=== PATIENT | female | born 1970 | race African-American/Black ===

== ENCOUNTER 2016-09-05 16:43 | Emergency (ER) | payer SELFPAY ==
[~2016-09-05] VITALS: Ht 160 cm; Wt 72.6 kg
[2016-09-05 17:14] LABS: BASOPHILS # (AUTO) 0.2 /CMM (0.0-0.2); BASOPHILS % (AUTO) 2.3 % (0.0-2.0); DIFF TOTAL % 100 %; EOSINOPHILS # (AUTO) 0.2 /CMM (0.0-0.7); EOSINOPHILS % (AUTO) 2.8 % (0.0-6.0); HEMATOCRIT 42 % (33-45); LYMPHOCYTES # (AUTO) 3.4 /CMM (0.8-4.8); LYMPHOCYTES % (AUTO) 49.2 % (20.0-44.0); MEAN CORPUSCULAR HEMOGLOBIN 33 PG (26.0-33.0); MEAN CORPUSCULAR HGB CONC 34 g/dl (31.0-36.0); MEAN CORPUSCULAR VOLUME 98 fL (82-100); MONOCYTES # (AUTO) 0.6 /CMM (0.1-1.30); MONOCYTES % (AUTO) 8.7 % (2.0-12.0); NEUTROPHILS # (AUTO) 2.5 /CMM (1.8-8.9); PLATELET COUNT (AUTO) 142 /CMM (150-450); RED BLOOD CELL COUNT(AUTO) 4.26 MIL/uL (4.0-5.2); WHITE BLOOD COUNT (AUTO) 6.9 K/uL (4.3-11.0)
[2016-09-05 17:33] LABS: KETONES,URINE Negative (NEGATIVE); LEUKOCYTE ESTERASE ,URINE Small (NEGATIVE); PH,URINE 6.5 (5.0-8.0)
[2016-09-05 17:36] LABS: ADD UA MICROSCOPIC YES
[2016-09-05 17:38] LABS: CREATININE 0.8 mg/dL (0.6-1.3); POTASSIUM 3.8 mmol/L (3.5-5.1)
[2016-09-05 17:44] LABS: ALBUMIN 4.1 g/dL (3.4-5.0); BILIRUBIN,DIRECT 0.1 mg/dL (0.0-0.2); BILIRUBIN,TOTAL 0.4 mg/dL (0.2-1.0); INDIRECT BILIRUBIN 0.3 mg/dL (0.0-1.1); TOTAL PROTEIN, SERUM 7.8 g/dL (6.4-8.2)
[2016-09-05] MEDS ORDERED: CEPHALEXIN MONOHYDRATE 500 MG CAPSULE PO ONE ×2 (18:00→18:01)
[2016-09-05] MEDS ORDERED: ACETAMINOPHEN 325 MG TABLET ONE (18:04)
[2016-09-05 18:19] VITALS: BP 119/66
[2016-09-05 18:22] LABS: ADD URINE CULTURE YES
[2016-09-05] MEDS ORDERED: ACETAMINOPHEN 325 MG TABLET PO ONE (18:30)
== END 2016-09-05 18:17 | disposition home or self-care (01) ==
LOC: ER 16:49
DX: N39.0 Urinary tract infection, site not specified (principal); Z88.0 Allergy status to penicillin
CPT/HCPCS: 36415; 76705-TC; 80048-TC; 80076-TC; 81000-TC; 84703-TC; 85025-TC; 87086-TC; 87186-TC; A4606; Z7610

== ENCOUNTER 2016-09-11 09:38 | Emergency (ER) | payer MEDICAID ==
[~2016-09-11] VITALS: Ht 160 cm; Wt 72.6 kg
[2016-09-11 09:38] VITALS: BP 122/62
== END 2016-09-11 10:42 | disposition home or self-care (01) ==
LOC: ER 09:41
DX: B02.9 Zoster without complications (principal); Z88.0 Allergy status to penicillin
CPT/HCPCS: A4606; Z7502; Z7610

== ENCOUNTER 2022-04-20 07:25 | Emergency (ER) | payer MEDICAID ==
[~2022-04-20] VITALS: Ht 160 cm; Wt 72.6 kg
--- NOTE | 2022-04-20 07:39 | NUR ---
TO ER BED 10. BIBS C/O ABDOMINAL PAIN STARTED YESTERDAY P/S 10 LLQ. PT STATED THAT THE PAIN IS A SHARP PAIN. ATTACHED TO MONITOR. VITALS ARE WITHIN NORMAL LIMITS. WARM BLANKET PROVIDED FOR COMFORT. DR AGUILAR AT BEDSIDE FOR EVAL.
--- NOTE | 2022-04-20 07:42 | NUR ---
URINE COLLECTED AND SENT
--- NOTE | 2022-04-20 07:52 | NUR ---
IV ESTABLISHED L AC 20G. LABS DRAWN AND COLLECTED AT BEDSIDE.
[2022-04-20 08:01] LABS: BASOPHILS # (AUTO) 0.1 K/uL (0.0-0.2); BASOPHILS % (AUTO) 1.1 % (0.0-2.0); EOSINOPHILS % (AUTO) 3.3 % (0.0-6.0); HEMATOCRIT 38 % (33-45); HEMOGLOBIN 12.9 g/dL (11.5-14.8); LYMPHOCYTES # (AUTO) 3.1 K/uL (0.8-4.8); MEAN CORPUSCULAR HGB CONC 34 g/dl (31.0-36.0); MEAN CORPUSCULAR VOLUME 100 fL (82-100); MONOCYTES # (AUTO) 1.1 K/uL (0.1-1.30); NEUTROPHILS % (AUTO) 56.6 % (43.0-81.0); PLATELET COUNT (AUTO) 163 K/uL (150-450); RED BLOOD CELL COUNT(AUTO) 3.82 MIL/uL (4.0-5.2); WHITE BLOOD COUNT (AUTO) 10.6 K/uL (4.3-11.0)
[2022-04-20] MEDS ORDERED: ONDANSETRON HCL/PF 4 MG/2 ML VIAL ONE (08:12)
[2022-04-20] MEDS ORDERED: MORPHINE SULFATE INJ 4 MG/ML DISP.SYRIN ONE ×2 (08:13→11:36)
[2022-04-20 08:19] LABS: BILIRUBIN,URINE SMALL (NEGATIVE); COLOR,URINE DARK YELLOW (YELLOW); LEUKOCYTE ESTERASE ,URINE SMALL (NEGATIVE); NITRITE, URINE POSITIVE (NEGATIVE); PROTEIN,URINE 30 mg/dl (NEGATIVE); UGLUCOSE NEGATIVE (NEGATIVE)
[2022-04-20] MEDS ORDERED: MORPHINE SULFATE INJ 2 MG/ML DISP.SYRIN IV ONE ×2 (08:30→12:00)
[2022-04-20] MEDS ORDERED: IV NS 0.9% 1,000 ML IV ONE (08:30)
[2022-04-20] MEDS ORDERED: ONDANSETRON HCL/PF 4 MG/2 ML VIAL IV ONE (08:30)
--- NOTE | 2022-04-20 08:31 | NUR ---
WAIVER SIGNED BY PT; FORM PLACED IN THE CHART.
[2022-04-20 08:44] LABS: ALBUMIN 3.8 g/dL (3.4-5.0); BILIRUBIN,DIRECT 0.2 mg/dL (0.0-0.2); BILIRUBIN,TOTAL 0.8 mg/dL (0.2-1.0); CALCIUM, SERUM 9.1 mg/dL (8.5-10.1); CREATININE 0.7 mg/dL (0.6-1.3); POTASSIUM 3.7 mmol/L (3.5-5.1); TOTAL PROTEIN, SERUM 7.6 g/dL (6.4-8.2)
[2022-04-20 08:54] LABS: BACTERIA,URINE Moderate /HPF (None Seen); SQUAMOUS EPITHELIAL CELL,UR Few /HPF (None Seen)
[2022-04-20] MEDS ORDERED: CEFTRIAXONE 1GM BAG (ER ONLY) 50 ML IV ONE (09:26)
[2022-04-20] MEDS ORDERED: CEFTRIAXONE 1 G in IV D5W 50 ML IV ONE (09:30)
--- NOTE | 2022-04-20 11:23 | NUR ---
ULTRASOUND AT BEDSIDE
[2022-04-20] MEDS ORDERED: ONDA4TAB5 PO (12:13)
[2022-04-20] MEDS ORDERED: AMOX-430 PO (12:13)
[2022-04-20] MEDS ORDERED: HYDR-4209 PO (12:13)
[2022-04-20 12:29] VITALS: BP 119/73
--- NOTE | 2022-04-20 12:29 | NUR ---
IV removed. Catheter intact and site benign. Pressure and 4x4 applied to site. No bleeding noted.Patient discharged to home in stable condition. Written and verbal after care instructions given. Patient verbalizes understanding of instruction.
== END 2022-04-20 12:30 | disposition home or self-care (01) ==
LOC: ER 07:29
DX: R10.32 Left lower quadrant pain (principal); N39.0 Urinary tract infection, site not specified; D25.9 Leiomyoma of uterus, unspecified; Z88.0 Allergy status to penicillin
CPT/HCPCS: 99285; 96365; 76856; 96375; 96361; 96376; 85025; 80048; 87077; 87086; 83690; 80076; 84703; 87186; 81001; 36415; 84702; J2270 ×2; J2405; J7030; J0696; J7060

== ENCOUNTER 2023-05-05 14:06 | Emergency (ER) | payer OTHER ==
[~2023-05-05 14:06] MED LIST: AMOX-430 PO; CIPR-262 PO; HYDR-4209 PO; ONDA4TAB5 PO
== END 2023-05-05 15:37 | disposition home or self-care (01) ==
LOC: ER 14:28
DX: Z53.21 Procedure and treatment not carried out due to patient leaving prior to being seen by health care provider (principal)